=== PATIENT | female | born 1980 | race Caucasian/White ===

== ENCOUNTER → 2019-09-20 | Outpatient (CLI) | payer BC ==
[~2019-09-20] MED LIST: IOHEXOL-350 75 ML VIAL IV ONE
== END | disposition home or self-care (01) ==
LOC: RAH 07:47
PROVIDERS: ATTEND Internal Medicine Gastroenterology
DX: I86.2 Pelvic varices (principal); N32.89 Other specified disorders of bladder
CPT/HCPCS: 74178; Q9967

== ENCOUNTER 2021-03-03 09:16 | Emergency (ER) | payer BC | END 2021-03-03 11:19 | disposition home or self-care (01) | LOC: EDH 09:16 | DX: G44.009 Cluster headache syndrome, unspecified, not intractable (principal); Z79.899 Other long term (current) drug therapy; Z98.890 Other specified postprocedural states | CPT/HCPCS: 99281 ==

== ENCOUNTER → 2021-05-20 | Outpatient (CLI) | payer BC | END | disposition home or self-care (01) | LOC: SHCH 14:18 | PROVIDERS: ATTEND Internal Medicine Cardiovascular Disease | DX: I08.1 Rheumatic disorders of both mitral and tricuspid valves (principal); R55 Syncope and collapse | CPT/HCPCS: 93306; 93356 ==

== ENCOUNTER → 2021-06-26 | Outpatient (CLI) | payer BC | END | disposition home or self-care (01) | LOC: RAH 12:48 | DX: G44.059 Short lasting unilateral neuralgiform headache with conjunctival injection and tearing (SUNCT), not intractable (principal) | CPT/HCPCS: 70551 ==

== ENCOUNTER 2025-07-22 08:48 | Emergency (ER) | payer OTHER ==
[~2025-07-22] VITALS: Ht 160 cm; Wt 53.5 kg
[2025-07-22 09:20] LABS: IMMATURE GRANULOCYTE ABSOLUTE 0.01 K/uL (0-1); NUCLEATED RED BLOOD CELLS 0.0 % (0.0-0.19); PLATELET COUNT (AUTO) 245 K/uL (130-400); RED BLOOD CELL COUNT(AUTO) 3.61 MIL/uL (4.00-5.50); RED CELL DISTRIBUTION WIDTH 12.0 % (11.0-15.5); WHITE BLOOD COUNT (AUTO) 4.8 K/uL (4.8-10.8)
[2025-07-22 09:29] LABS: CREATININE 0.8 mg/dL (0.5-1.0); GLOMERULAR FILTR. RATE CALC 93.0 mL/min (>90); GLUCOSE,RANDOM 122.0 mg/dL (70-105); SODIUM SERUM 137.0 mmol/L (136-145); UREA NITROGEN, BLOOD 15.0 mg/dL (7-18)
[2025-07-22] MEDS: 0.9% NACL 500ML IV.SOLN 500 ML IV ONE (09:29)
[2025-07-22 09:40] LABS: ASPARTATE AMINOTRANSFERASE 18.0 U/L (10-37); TOTAL PROTEIN, SERUM 6.6 g/dL (6.0-8.3)
[2025-07-22 09:41] VITALS: TEMP 98.3
[2025-07-22] MEDS: 0.9%NACL 1000ML 1,000 ML IV ONE (09:45)
--- NOTE | 2025-07-22 10:03 | EKG ---
[facility] Test Date: 2025-07-22 Test Time: 09:13:21 Pat Name: JESICA GARCIA Department: ED Room: Gender: F Title Assistant: [id number] : 1980 Requested By: JUAN CARLOS PUGH Order Number: [id number] Reading MD: Jasmeet Manzano Measurements Intervals Smilax Rate: 63 P: 46 OK: 160 QRS: 41 QRSD: 107 T: 26 QT: 384 QTc: 392 Interpretive Statements Sinus rhythm RSR prime V1 V2 No previous ECG available for comparison Electronically Signed On 07-22-2025 11:41:48 CDT by Jasmeet Manzano Please click the below link to view image of tracing.
[2025-07-22 10:45] VITALS: BP 100/69; PULSE 87; RESP 20; O2SAT 98
--- NOTE | 2025-07-22 11:10 | HMCIMG ---
EXAM: CT Abdomen and Pelvis Without IV contrast CLINICAL HISTORY: lower abdominal pain TECHNIQUE: Axial computed tomography images of the abdomen and pelvis without intravenous contrast. CONTRAST: No IV contrast. COMPARISON: Previous CT dated 09/20/19. FINDINGS: LUNG BASES: The lung bases appear clear. No pleural effusions are seen. LIVER: Unremarkable. GALLBLADDER AND BILE DUCTS: The gallbladder appears within normal limits. No radioopaque gallstones are seen. No biliary ductal dilatation is evident. PANCREAS: Unremarkable. SPLEEN: Unremarkable. ADRENAL GLANDS: Unremarkable. KIDNEYS, URETERS, AND BLADDER: The kidneys appear within normal limits. There is no hydronephrosis or hydroureter. No urinary calculi are seen. STOMACH AND BOWEL: Unremarkable appearance of the stomach and bowel. No evidence of bowel obstruction. No evidence suggesting enteritis or colitis. Large amount of stool in the colon. APPENDIX: Normal appendix. PERITONEUM: No free fluid. No free air. LYMPH NODES: No lymphadenopathy is evident. REPRODUCTIVE: Unremarkable as visualized. Intrauterine contraceptive device in situ. VASCULATURE: No evidence of abdominal aortic aneurysm. BONES: No aggressive appearing osseous lesion. No acute osseous pathology evident. IMPRESSION: 1. No acute intra-abdominal or pelvic pathology. 2. Constipation. /[place]
[2025-07-22] MEDS ORDERED: ONDA-243 PO (11:44)
--- NOTE | 2025-07-22 11:44 | ERN ---
ED Note History of Present Illness Stated Complaint: NAUSEA,VOMITING DIARRHEA Chief Complaint: Nausea,Vomiting,Diarrhea Time Seen by MD: 08:56 Dictation: 45-year-old female presenting to the emergency department with nausea vomiting and diarrhea over the past few days had multiple episodes nonbloody and feeling very weak at near syncopal episode. Allergies: Coded Allergies: No Known Allergies (Unverified Allergy, Unknown, 03/03/21) Past Medical History Past Medical History: Other Additional Past Medical Hx: HEADACHES, TRIGEMINAL NEURALGIA Surgical History: Other Surgical History Other: FACIAL NERVE SURGERY Review of System Dictation Constitutional: Negative for fever,chills, and weight loss Eyes: Negative for injury, pain,redness, and discharge ENT: Negative for injury,pain or swelling Cardiovascular: Negative for chest pain, palpitations, and edema Respiratory: Negative for shortness of breath, cough, and wheezing, Abdomen/GI: Per HPI : Negative for injury, bleeding and discharge MS/Extremity: Negative for injury and deformity Skin: Negative for rash, and discoloration Neuro: Per HPI Initial Vital Sign VS Vital Signs Date Time Temp Pulse Resp B/P (MAP) Pulse Ox O2 Delivery O2 Flow Rate FiO2 07/22/25 08:51 98.1 95 18 98/59 98 Room Air 07/22/25 09:41 0 21 Physical Exam Dictation General: awake, alert, appears weak Head/Face: Normocephalic, atraumatic Eyes: PERRL, EOMI, vision at baseline ENT: oral cavity clear, TMs clear, no signs of infection Neck: Trachea midline, supple, no nuchal rigidity Cardiovascular: RRR, normal S1/S2, No MRGs, no JVD Respiratory: CTAB, no respiratory distress, No rales or wheezes Abdomen: Soft, non-tender, non-distended, normal bowel sounds, no guarding or rebound. Skin: Warm, dry, normal turgor, no rash MS/Extremity: Pulses equal, no cyanosis, neurovascular intact, FROM Neuro: COAx4, GCS 15, strength 5/5, CN 2-12 intact, normal cerebellar exam, normal gait, Psych: Normal behavior, mood, and affect normal Results (Laboratory/Radiology) Laboratory/Radiology Laboratory Tests Test 07/22/25 09:12 White Blood Count 4.8 K/uL (4.8-10.8) Red Blood Count 3.61 MIL/uL (4.00-5.50) L Hemoglobin 12.3 g/dL (12.0-16.0) Hematocrit 36.2 % (36-48) Mean Corpuscular Volume 100.3 fL (79-99) H Mean Corpuscular Hemoglobin 34.1 pg (27.0-33.0) H Mean Corpuscular Hemoglobin Concent 34.0 g/dL (32.0-36.0) Red Cell Distribution Width 12.0 % (11.0-15.5) Platelet Count 245 K/uL (130-400) Mean Platelet Volume 10.5 fL (7.5-10.5) Immature Granulocyte % (Auto) 0.2 % (0-1) Neutrophils (%) (Auto) 75.4 % (40.0-77.0) Lymphocytes (%) (Auto) 17.9 % (21.0-51.0) L Monocytes (%) (Auto) 5.3 % (3.0-13.0) Eosinophils (%) (Auto) 0.4 % (0.0-8.0) Basophils (%) (Auto) 0.8 % (0.0-5.0) Neutrophils # (Auto) 3.6 K/uL (1.8-7.7) Lymphocytes # (Auto) 0.9 K/uL (1.0-4.8) L Monocytes # (Auto) 0.3 K/uL (0.1-1.0) Eosinophils # (Auto) 0.02 K/uL (0.00-0.70) Basophils # (Auto) 0.04 K/uL (0.00-0.20) Absolute Immature Granulocyte (auto 0.01 K/uL (0-1) Nucleated Red Blood Cells 0.0 % (0.0-0.19) Sodium Level 137 mmol/L (136-145) Potassium Level 4.1 mmol/L (3.5-5.1) Chloride Level 103 mmol/L (101-111) Carbon Dioxide Level 30 mmol/L (21-32) Blood Urea Nitrogen 15 mg/dL (7-18) Creatinine 0.8 mg/dL (0.5-1.0) Glomerular Filtration Rate Calc 93 mL/min (>90) Random Glucose 122 mg/dL (70-105) H Total Calcium 8.2 mg/dL (8.5-10.1) L Total Bilirubin 0.5 mg/dL (0.2-1.0) Direct Bilirubin 0.2 mg/dL (0.0-0.3) Aspartate Amino Transf (AST/SGOT) 18 U/L (10-37) Alanine Aminotransferase (ALT/SGPT) 27 U/L (12-78) Alkaline Phosphatase 47 U/L (50-136) L Troponin I High Sensitivity < 4 ng/L (4-50) L Total Protein 6.6 g/dL (6.0-8.3) Albumin 3.6 g/dL (3.5-5.0) Lipase 17 U/L (16-77) Labs Reviewed?: Yes EKG Comment: Heart rate 63 normal sinus rhythm normal intervals no STEMI ED Course ED Course Orders Procedure Category Date Status Time 12 Lead Ekg Tracing- EKG 07/22/25 Complete Technical 08:56 Cbc With Differential LAB 07/22/25 Complete 08:56 Basic Metabolic Panel LAB 07/22/25 Complete 08:56 Hepatic Function Panel LAB 07/22/25 Complete 08:56 Lipase LAB 07/22/25 Complete 08:56 Troponin I High LAB 07/22/25 Complete Sensitivity 08:56 Ondansetron 4mg Inj PHA 07/22/25 Complete (Zofran 4mg Inj) 09:00 0.9% Nacl 500ml PHA 07/22/25 Complete Iv.Soln (Ns 500ml 09:00 Loperamide Hcl 2 Mg PHA 07/22/25 Complete Cap (Imodium) 10:00 0.9%Nacl 1000ml (Ns PHA 07/22/25 Complete 1000ml) 10:00 Ct Abd/Pel Wo Con CT 07/22/25 Resulted Renal/Appy 09:42 Current Medications Medications (Trade) Dose Ordered Sig/Tomasa Route PRN Reason Start Time Stop Time Status Last Admin Dose Admin Loperamide HCl (Imodium) 4 mg ONCE ONCE PO 07/22/25 10:00 07/22/25 10:01 DC Ondansetron HCl (zoFRAN 4MG INJ) 4 mg ONCE ONCE IVP 07/22/25 09:00 07/22/25 09:04 DC 07/22/25 09:29 Sodium Chloride 500 ml @ 0 mls/hr ONCE ONCE IV 07/22/25 09:00 07/22/25 09:04 DC 07/22/25 09:29 Sodium Chloride 1,000 ml @ 0 mls/hr ONCE ONCE IV 07/22/25 10:00 07/22/25 10:01 DC 07/22/25 09:45 Vital Signs Date Time Temp Pulse Resp B/P (MAP) Pulse Ox O2 Delivery O2 Flow Rate FiO2 07/22/25 09:41 98.2 64 20 107/74 100 Room Air* 0 21 07/22/25 08:51 98.1 95 18 98/59 98 Room Air Medical Decision Making MDM MDM: Differential diagnosis: Rationale: Tests considered and ordered secondary to shared decision making include: Previous outside records reviewed: Old ER visits. Risk of complication and/or morbidity or mortality of patient management: None Medications-Per medication reconciliation Need for hospitalization: Patient does not meet criteria for hospitalization. Need for emergency major/minor surgery: No There are no social concerns with this patient. Prescription drug management Prescriptions will include symptomatic care Patient's prior external medical records from other ER visits were reviewed by me as indicated. Prior testing and results from previous visits were reviewed. Prior tests were taken into account with medical decision making and resource utilization, independent historian/historians were used to obtain complete medical history. I independently interpreted the test that were performed, results were reviewed by me and considered findings on radiology if ordered. Medical management and examination interpretation discussions were had by me with other qualified healthcare professionals as indicated for the patient's care. 45-year-old female with acute gastroenteritis and dehydration negative workup symptoms improved IV fluids given prescriptions given stable for discharge. DX & DISP Disposition: Discharge Departure Impression: Primary Impression: Acute gastroenteritis Additional Impression: Acute dehydration Condition: Stable Scripts Ondansetron (Ondansetron Odt) 4 Mg Tab.rapdis 4 MG PO BID for vomiting for 5 Days, #10 TAB Prov: JUAN CARLOS PUGH MD 07/22/25 Referrals: ALICIA BLAKE MD (PCP) JUAN CARLOS PUGH MD Jul 22, 2025 11:44
[2025-07-22] MEDS: LOPERAMIDE HCL 2 MG CAP PO ONE (11:56)
== END 2025-07-22 11:56 | disposition home or self-care (01) ==
LOC: EDH 08:48
DX: K52.9 Noninfective gastroenteritis and colitis, unspecified (principal); E86.0 Dehydration; Z98.890 Other specified postprocedural states
CPT/HCPCS: 99285; 74176; 96374; 96361; 80076; 84484; 80048; 83690; 85025; 36415; 93005; J7040; J2405